=== PATIENT | female | born 1965 | race American Indian/Alaskan Native ===

== ENCOUNTER 2018-02-22 19:31 | Emergency (ER) | payer MEDICAID ==
[2018-02-23] MEDS ORDERED: NORCO 7.5/325 PO ONE (00:05)
[2018-02-23 00:53] VITALS: BP 120/68
--- NOTE | 2018-02-23 01:00 | Emergency Department Report ---
ED General Adult HPI - General Chief complaint: Pain General Stated complaint: CHRONIC PAIN/BREATHING Time Seen by Provider: 02/22/18 22:48 Source: patient Mode of arrival: Wheelchair Limitations: Physical Limitation - History of Present Illness Initial comments: ms Tobin is a 52 year-old woman with hx of lupus, multiple CVAs who presents needing pain medication and a CPAP machine. Was just discahrged from [facility] yesterday. Was there for nearly a year recovering from CVA. has residual R sided weakness. Had been getting lortab 7.5mg q6h. She was not sent home with any. She reports chronic pain from her lupus. Pain in "all of my joints." No chest pain, no shortness of breath, no fever, no pain with urination. Has DANITZA and was not sent home with a CPAP machine. Wants pain meds and a CPAP. is accompanied by her office rn. No other complaints. Severity scale (0 -10): 10 - Related Data Allergies Allergy/AdvReac Type Severity Reaction Status Date / Time No Known Allergies Allergy Unverified 02/22/18 19:40 ED Review of Systems ROS: Stated complaint: CHRONIC PAIN/BREATHING Other details as noted in HPI Comment: All other systems reviewed and negative ED Past Medical Hx - Past Medical History Previous Medical History?: Yes Hx Hypertension: Yes Hx CVA: Yes (Right sided weakness) Hx GERD: Yes Hx Arthritis: Yes Hx Psychiatric Treatment: Yes (depression) Hx Asthma: Yes Hx COPD: Yes Additional medical history: Lupus, Rhuematoid Arthritis, Fibromyalgia, TIS, Anemia, Lympodema, Insomnia, Uses a sleep apnea machine at night - Surgical History Past Surgical History?: Yes Additional Surgical History: Carotid Endarectomy Right side - Social History Smoking Status: Current Some Day Smoker ED Physical Exam - General Limitations: Physical Limitation General appearance: alert, in no apparent distress - Head Head exam: Present: atraumatic, normocephalic - Eye Eye exam: Present: normal appearance, EOMI - ENT ENT exam: Present: normal exam, mucous membranes moist - Neck Neck exam: Present: normal inspection. Absent: tenderness - Respiratory Respiratory exam: Present: normal lung sounds bilaterally. Absent: respiratory distress, wheezes, rales - Cardiovascular Cardiovascular Exam: Present: regular rate, normal rhythm. Absent: systolic murmur, diastolic murmur, rubs, gallop - GI/Abdominal GI/Abdominal exam: Present: soft. Absent: distended, tenderness - Extremities Exam Extremities exam: Present: normal inspection - Back Exam Back exam: Present: normal inspection. Absent: tenderness - Neurological Exam Neurological exam: Present: alert, oriented X3, other (R sided weakness) - Psychiatric Psychiatric exam: Present: normal affect, normal mood - Skin Skin exam: Present: warm, dry, intact, normal color. Absent: rash ED Course Vital Signs 02/22/18 02/22/18 02/23/18 20:00 22:12 00:53 Temperature 97.9 F 98.5 F Pulse Rate 93 H 71 86 Respiratory 16 16 18 Rate Blood Pressure 122/78 Blood Pressure 115/73 120/68 [Right] O2 Sat by Pulse 98 97 96 Oximetry ED Medical Decision Making - Medical Decision Making Ms Tobin is a 52 year-old woman needing medication refill and CPAP. No other complaints. Is with her office rn. SpO2 normal on room air. No acute injury or trauma. Giving one dose of her PO lortab. unable to refill pain medication. Recommend she contact [facility] for her CPAP and RX, otherwise see her PCP or call Saturday to talk with social service worker to help her get a home CPAP. DC to home with return precautions. no cpap to give, I do not feel comfortable refilling chronic pain medication in the ED. no emergent indication. Critical care attestation.: If time is entered above; I have spent that time in minutes in the direct care of this critically ill patient, excluding procedure time. ED Disposition Clinical Impression: Chronic pain Qualifiers: Chronic pain type: other chronic pain Qualified Code(s): G89.29 - Other chronic pain Disposition: DC-01 TO HOME OR SELFCARE Is pt being admited?: No Condition: Stable Instructions: Insomnia (ED), CPAP (GEN) Additional Instructions: Please call [phone] Saturday morning and ask to speak with social work. They can assist you in getting a home CPAP Referrals: PRIMARY CARE,MD [Primary Care Provider] - 3-5 Days
== END 2018-02-23 01:24 | disposition home or self-care (01) ==
LOC: ED 19:31
DX: G89.29 Other chronic pain (principal); M32.9 Systemic lupus erythematosus, unspecified; I10 Essential (primary) hypertension; K21.9 Gastro-esophageal reflux disease without esophagitis; F32.9 Major depressive disorder, single episode, unspecified; M06.9 Rheumatoid arthritis, unspecified; M79.7 Fibromyalgia; G47.00 Insomnia, unspecified; F17.200 Nicotine dependence, unspecified, uncomplicated
CPT/HCPCS: 99282

== ENCOUNTER 2018-09-04 17:55 | Inpatient (IN) | payer MEDICAID ==
[2018-09-04] MEDS ORDERED: NACL 0.9% 1000 ML 1,000 ML IV ONE (18:13)
[2018-09-04] MEDS ORDERED: ZOFRAN ONE (18:17)
[2018-09-04 18:35] LABS: Basophils # (Auto) 0.1 K/mm3 (0.0-0.1); Eosinophils # (Auto) 0.1 K/mm3 (0.0-0.4); Eosinophils % (Auto) 1.1 % (0.0-4.3); Hematocrit 32.1 % (30.3-42.9); Hemoglobin 10.5 gm/dl (10.1-14.3); Lymphocytes # (Auto) 3.1 K/mm3 (1.2-5.4); Lymphocytes % (Auto) 31.5 % (13.4-35.0); Mean Corpuscular HGB Conc 33 % (30-34); Mean Corpuscular Volume 81 fl (79-97); Monocytes # (Auto) 1.5 K/mm3 (0.0-0.8); Monocytes % (Auto) 15.7 % (0.0-7.3); Platelet Count 446 K/mm3 (140-440); Red Blood Count 3.99 M/mm3 (3.65-5.03); Red Cell Distribution Width 15.8 % (13.2-15.2)
[2018-09-04 18:47] LABS: Albumin 3.1 g/dL (3.9-5); Calcium 9.4 mg/dL (8.4-10.2)
--- NOTE | 2018-09-04 20:30 | Emergency Department Report ---
ED Abdominal Pain HPI - General Chief Complaint: Nausea/Vomiting/Diarrhea Stated Complaint: HYPOTENSION Time Seen by Provider: 09/04/18 20:19 Source: patient, family Mode of arrival: Wheelchair Limitations: No Limitations - History of Present Illness Initial Comments: Condition is a 52-year-old female that presents emergency room with complaints of abdominal pain 3 days. Patient states she is also having nausea vomiting diarrhea. Patient states her abdominal pain is 10 out of 10 and is generalized. Patient states her pain is nonradiating. Patient states the pain is better with rest and worse with movement and vomiting. Patient states she does not have anything down for 3 days. MD Complaint: abdominal pain -: Sudden Location: diffuse Radiation: none Migration to: no migration Severity: severe Severity scale (0 -10): 10 Quality: stabbing Consistency: constant Improves With: rest Worsens With: eating, vomiting, movement Associated Symptoms: nausea, vomiting, diarrhea. denies: fever, chills, constipation, dysuria, hematemesis, hematochezia, melena, hematuria, anorexia - Related Data LMP (females 10-50): unknown Allergies Allergy/AdvReac Type Severity Reaction Status Date / Time No Known Allergies Allergy Unverified 02/22/18 19:40 ED Review of Systems ROS: Stated complaint: HYPOTENSION Other details as noted in HPI Constitutional: denies: chills, fever Eyes: denies: eye pain, eye discharge, vision change ENT: denies: ear pain, throat pain Respiratory: denies: cough, shortness of breath, wheezing Cardiovascular: denies: chest pain, palpitations Endocrine: no symptoms reported Gastrointestinal: abdominal pain, nausea, vomiting, diarrhea. denies: constipation, hematemesis, melena Genitourinary: denies: urgency, dysuria, discharge Musculoskeletal: denies: back pain, joint swelling, arthralgia Skin: denies: rash, lesions Neurological: denies: headache, weakness, paresthesias Psychiatric: denies: anxiety, depression Hematological/Lymphatic: denies: easy bleeding, easy bruising ED Past Medical Hx - Past Medical History Previous Medical History?: Yes Hx Hypertension: Yes Hx CVA: Yes (Right sided weakness) Hx GERD: Yes Hx Renal Disease: Yes Hx Arthritis: Yes Hx Psychiatric Treatment: Yes (depression) Hx Asthma: Yes Hx COPD: Yes Additional medical history: Lupus, Rhuematoid Arthritis, Fibromyalgia, TIS, Anemia, Lympodema, Insomnia, Uses a sleep apnea machine at night - Surgical History Past Surgical History?: Yes Additional Surgical History: Carotid Endarectomy Right side - Social History Smoking Status: Never Smoker Substance Use Type: None ED Physical Exam - General Limitations: No Limitations General appearance: alert, in no apparent distress - Head Head exam: Present: atraumatic, normocephalic - Eye Eye exam: Present: normal appearance - ENT ENT exam: Present: mucous membranes dry - Neck Neck exam: Present: normal inspection - Respiratory Respiratory exam: Present: normal lung sounds bilaterally. Absent: respiratory distress - Cardiovascular Cardiovascular Exam: Present: regular rate, normal rhythm. Absent: systolic murmur, diastolic murmur, rubs, gallop - GI/Abdominal GI/Abdominal exam: Present: soft, tenderness (generalized ttp but most tenderness noted in the left lower quadrant), normal bowel sounds - Extremities Exam Extremities exam: Present: normal inspection - Back Exam Back exam: Present: normal inspection - Neurological Exam Neurological exam: Present: alert, oriented X3 - Psychiatric Psychiatric exam: Present: normal affect, normal mood - Skin Skin exam: Present: warm, dry, intact, normal color. Absent: rash ED Course Vital Signs 09/04/18 09/04/18 09/04/18 18:10 21:38 23:15 Temperature 98.2 F Pulse Rate 100 H Respiratory 20 16 18 Rate Blood Pressure 98/62 Blood Pressure [Left] O2 Sat by Pulse 99 99 Oximetry 09/04/18 09/05/18 09/05/18 23:35 01:00 02:45 Temperature 98 F Pulse Rate 98 H 85 99 H Respiratory 18 16 18 Rate Blood Pressure Blood Pressure 96/56 98/59 84/49 [Left] O2 Sat by Pulse 98 96 98 Oximetry 09/05/18 09/05/18 09/05/18 03:16 03:46 05:48 Temperature Pulse Rate 98 H 105 H 103 H Respiratory 22 24 14 Rate Blood Pressure 123/99 89/54 Blood Pressure 92/50 [Left] O2 Sat by Pulse 96 95 Oximetry - Reevaluation(s) Reevaluation #1: Patient still complaining of significant abdominal pain and nausea. 09/04/18 22:10 Discussed all results with patient. Patient agrees with plan of care and admission. Patient to be admitted to the hospitalist service for further outpatient treatment. 09/04/18 22:35 Reevaluation #2: Patient has already been admitted to the hospitalist service. However patient has become hypotensive. I discussed with the hospitalist the need for a central line and Dr. Han agrees with central line placement. Central line will be placed. See procedure note. 09/05/18 03:28 Central line placed and chest x-ray will be done. Central line was placed in the right IJ 09/05/18 04:29 X-ray shows good placement. 09/05/18 05:53 - Consultations Consultation #1: Hospitalist consultation. Hospital is to admit patient and assume care of patient. 09/04/18 22:35 - Central Line Placement Right IJ Consent Obtained: verbal consent, emergent situation Time Out Performed: Yes Patient Placed on Monitor/Pulse Ox: Yes Prep: mask, gown, gloves Central Line Prep: Chlorhexidine scrub, sterile drapes applied Local Anesthesia Used: Lidocaine 1% Ultrasound Used for Placement: Yes Central Line Lumen Inserted: triple Bloods Obtained for Lab: No Central Line Position: good blood return, all ports aspirated, flus, sutured in place with 2-0 Dressing Applied: Tegaderm Post Procedure X-Ray: tip of catheter in good p Patient Tolerated Procedure: well Complications: none ED Medical Decision Making - Lab Data Result diagrams: 09/04/18 18:15 09/04/18 18:15 - Radiology Data Radiology results: report reviewed, image reviewed interpreted by me: Chest x-ray reviewed and central line is in satisfactory position. No pneumothorax noted FINAL REPORT EXAM: CT ABDOMEN PELVIS WO CON HISTORY: abd pain TECHNIQUE: Helical CT scan through the abdomen and pelvis without contrast. Images are reconstructed in the sagittal and coronal planes. PRIORS: None. FINDINGS: Solid organ and bowel evaluation is limited without intravenous contrast. Bowel evaluation is limited without oral contrast. There is mild bibasilar subsegmental atelectasis. The liver, gallbladder, pancreas, spleen and adrenal glands appear normal. The kidneys appear grossly normal. Pelvic organs are partially obscured by spray artifact from a right hip prosthesis. No abnormalities are demonstrated in the pelvis. The stomach appears grossly within normal limits. There are no abnormally dilated loops of bowel or acute inflammatory changes. A normal-appearing appendix is identified. There is colonic diverticulosis without evidence of acute diverticulitis. The abdominal aorta has a normal diameter. There is a right hip prosthesis. The bones are diffusely demineralized. There is advanced degenerative disc disease at L5-S1. There are chronic compression fractures of the L1 through L4 vertebral bodies. IMPRESSION: 1. Diverticulosis without evidence of acute diverticulitis 2. No acute findings in the abdomen/pelvis 3. Chronic compression fractures of L1 through L4 Transcribed By: YAZMIN Dictated By: JIMI PEDERSON MD Electronically Authenticated By: JIMI PEDERSON MD Signed Date/Time: 09/04/18 3316 FINAL REPORT EXAM: XR CHEST 1V AP HISTORY: Post central line TECHNIQUE: AP portable view(s) of the chest obtained. PRIORS: CT abdomen and pelvis 09/04/2018 FINDINGS: Right IJ line terminates near the superior cavoatrial junction. No mediastinal shift. Cardiac silhouette is not enlarged. No pneumothorax, effusion, or focal airspace disease identified. Linear bibasilar atelectasis/scarring. No acute skeletal findings. IMPRESSION: Satisfactory appearance of patient's right IJ line without pneumothorax. Transcribed By: KAVON Dictated By: LON MEDINA MD Electronically Authenticated By: LON MEDINA MD Signed Date/Time: 09/05/18 5057 - Medical Decision Making Patient is 52-year-old female Emergency with intractable nausea vomiting and abdominal pain. Patient found to have a lactic acidosis and a UTI on labs. Patient also found to have acute renal insufficiency. Head CT done. Shows no acute findings. CT Limited due to the fact that IV and oral contrast could not be used due to the patient's clinical situation. Clinically patient has diverticulitis. Patient we treated accordingly. Patient given his the hospital service for further well-nourished treatment. Patient given Dilaudid and Zofran in the ER. Pain has improved and nausea has improved. Patient given Zosyn in the ER for resume diverticulitis and UTI. After admission, patient became hypotensive. Central line was placed in case pressures are needed. Patient is receiving saline boluses and blood pressure is slightly improving. Patient blood pressure during central line placement was 99/60. - Differential Diagnosis diverticuli. Intractable nausea and vomiting. Abdominal pain. UTI. Puneet Critical Care Time: Yes Critical care attestation.: If time is entered above; I have spent that time in minutes in the direct care of this critically ill patient, excluding procedure time. Critical Care Time: 80 minutes ED Disposition Clinical Impression: Diverticulitis, Dehydration, Acute renal insufficiency, Lactic acidosis Abdominal pain Qualifiers: Abdominal location: generalized Qualified Code(s): R10.84 - Generalized abdominal pain Intractable nausea and vomiting Qualifiers: Vomiting type: unspecified Qualified Code(s): R11.2 - Nausea with vomiting, unspecified UTI (urinary tract infection) Qualifiers: Urinary tract infection type: acute cystitis Hematuria presence: with hematuria Qualified Code(s): N30.01 - Acute cystitis with hematuria Sepsis Qualifiers: Sepsis type: sepsis due to unspecified organism Qualified Code(s): A41.9 - Sepsis, unspecified organism Hypotension Qualifiers: Hypotension type: unspecified hypotension type Qualified Code(s): I95.9 - Hypotension, unspecified Disposition: DC-09 OP ADMIT IP TO THIS HOSP Is pt being admited?: Yes Does the pt Need Aspirin: No Condition: Critical Time of Disposition: 22:32
[2018-09-04] MEDS ORDERED: DILAUDID IV ONE (20:54)
[2018-09-04] MEDS ORDERED: ZOFRAN IV ONE (20:55)
[2018-09-04 21:56] LABS: Bilirubin,Urine NEG (Negative); Color,Urine Amber (Yellow)
[2018-09-04 21:57] LABS: Bacteria,Urine 2+ /HPF (Negative); Blood,Urine NEG (Negative); Granular Casts,Urine 5 /LPF; Hyaline Casts,Urine 42 /LPF; Mucus,Urine 2+ /HPF; Urobilinogen,Urine < 2.0 mg/dL (<2.0)
--- NOTE | 2018-09-04 22:05 | Cat Scan Report ---
FINAL REPORT EXAM: CT ABDOMEN PELVIS WO CON HISTORY: abd pain TECHNIQUE: Helical CT scan through the abdomen and pelvis without contrast. Images are reconstructed in the sagittal and coronal planes. PRIORS: None. FINDINGS: Solid organ and bowel evaluation is limited without intravenous contrast. Bowel evaluation is limited without oral contrast. There is mild bibasilar subsegmental atelectasis. The liver, gallbladder, pancreas, spleen and adrenal glands appear normal. The kidneys appear grossly normal. Pelvic organs are partially obscured by spray artifact from a right hip prosthesis. No abnormalities are demonstrated in the pelvis. The stomach appears grossly within normal limits. There are no abnormally dilated loops of bowel or acute inflammatory changes. A normal-appearing appe ndix is identified. There is colonic diverticulosis without evidence of acute diverticulitis. The abdominal aorta has a normal diameter. There is a right hip prosthesis. The bones are diffusely demineralized. There is advanced degenerativ e disc disease at L5-S1. There are chronic compression fractures of the L1 through L4 vertebral pari s. IMPRESSION: 1. Diverticulosis without evidence of acute diverticulitis 2. No acute findings in the abdomen/pelvis 3. Chronic compression fractures of L1 through L4
[2018-09-04] MEDS ORDERED: ZOSYN/NS 2.25 GM/50ML 2.25 GM/50 ML BAG IV ONE (23:00)
[2018-09-04] MEDS ORDERED: BENADRYL IV ONE (23:15)
--- NOTE | 2018-09-04 23:41 | History and Physical Report ---
History of Present Illness Date of examination: 09/04/18 History of present illness: 53-year-old woman with a history of lupus, hypertension, depression, COPD, asthma, CVA, heumatoid arthritis, fibromyalgia comes to the emergency room with complaints of nausea vomiting 3 days, unable to tolerate oral intake. Also com plaining of abdominal pain, epigastric area which she describes as sharp pain, constant, intensity 5/10, no radiation, cannot identify exacerbating or relieving factors. Review of systems Constitutional: no weight loss, chills, fever Ears, eyes, nose, mouth and throat: no nasal congestion, no nasal discharge, no sinus pressure, no vision change, no red eye. Neck: No neck pain or rigidity. Cardiovascular: no palpitations, chest pain Respiratory: no cough, shortness of breath Gastrointestinal: no hematochezia Genitourinary : no frequency , no hematuria Musculoskeletal: no joint swelling or muscle ache Integumentary: no rash, no pruritis Neurological: no parathesias, no focal weakness Endocrine: no cold or heat intolerance, no polyuria or polydipsia Hematologic/Lymphatic: no easy bruising, no easy bleeding, no gland swelling Allergic/Immunologic: no urticaria, no angioedema. PAST MEDICAL HISTORY: lupus, hypertension, depression, COPD, asthma, CVA, rheumatoid arthritis, fibromyalgia PAST SURGICAL HISTORY: CEA SOCIAL HISTORY: Denies alcohol, drugs, tobacco FAMILY HISTORY: Hypertension Medications and Allergies Allergies Allergy/AdvReac Type Severity Reaction Status Date / Time No Known Allergies Allergy Unverified 02/22/18 19:40 Home Medications Medication Instructions Recorded Confirmed Last Taken Type Amoxicillin/Potassium Clav 1 each PO BID #10 tablet 09/09/18 Unknown Rx [Augmentin 875-125 Tablet] Exam - Physical Exam Narrative exam: General Apperance: The patient lying in bed, breathing comfortable HEENT: Normocephalic, atraumatic. Pupils equally round and reactive to light, EOMI, no sclericterus or JVD or thyromegaly or nodule. , no carotid bruit, mucous membranes moist, no exudate or erythema Heart: S1-S2, regular is rhythm Lungs: Clear to auscultation bilaterally, breathing comfortable Abdomen: Positive bowel sounds, soft, nontender, nondistended, no organomegaly Extremities: No edema cyanosis clubbing Skin: no rash, nodule, warm and dry Neuro: cranial nerves 2-12 intact, speech is fluent, motor/sensory intact - Constitutional Vitals: Temp Pulse Resp BP Pulse Ox 98.2 F 100 H 18 98/62 99 09/04/18 18:10 09/04/18 18:10 09/04/18 23:15 09/04/18 18:10 09/04/18 23:15 Results - Labs CBC & Chem 7: 09/07/18 04:25 09/08/18 05:24 Labs: Abnormal lab results 09/04/18 09/04/18 09/04/18 Range/Units 18:15 18:15 20:20 MCH 26 L (28-32) pg RDW 15.8 H (13.2-15.2) % Plt Count 446 H (140-440) K/mm3 [place] % (Auto) 15.7 H (0.0-7.3) % [place] # 1.5 H (0.0-0.8) K/mm3 Sodium 135 L (137-145) mmol/L Chloride 95.6 L (98-107) mmol/L Carbon Dioxide 19 L (22-30) mmol/L BUN 22 H (7-17) mg/dL Creatinine 2.6 H (0.7-1.2) mg/dL Lactic Acid (0.7-2.0) mmol/L Albumin 3.1 L (3.9-5) g/dL Urine WBC (Auto) 13.0 H (0.0-6.0) /HPF U Epithel Cells (Auto) 36.0 H (0-13.0) /HPF 09/04/18 Range/Units 21:49 MCH (28-32) pg RDW (13.2-15.2) % Plt Count (140-440) K/mm3 [place] % (Auto) (0.0-7.3) % [place] # (0.0-0.8) K/mm3 Sodium (137-145) mmol/L Chloride (98-107) mmol/L Carbon Dioxide (22-30) mmol/L BUN (7-17) mg/dL Creatinine (0.7-1.2) mg/dL Lactic Acid 2.60 H* (0.7-2.0) mmol/L Albumin (3.9-5) g/dL Urine WBC (Auto) (0.0-6.0) /HPF U Epithel Cells (Auto) (0-13.0) /HPF - Imaging and Cardiology EKG: image reviewed CT scan - abdomen: report reviewed CT scan - pelvis: report reviewed Assessment and Plan Assessment Acute renal failure Intractable nausea vomiting Relative hypotension UTI Rheumatoid arthritis fibromyalgia Lupus History of CVA Depression COPD Plan Admit to medicine Start IV fluid, IV Rocephin, follow cultures Monitor kidney function Start IV morphine, DVT prophylaxis Addendum Blood pressure still hovering in the 80s to 90s Broaden antibiotic coverage, continue fluid resuscitation Start levophed drip, consult critical care Check cardiac enzymes
[2018-09-04] MEDS ORDERED: ZOFRAN IV PRN (23:54)
[2018-09-04] MEDS ORDERED: SODIUM CHLORIDE FLUSH SYRINGE 10 ML IV PRN (23:54)
[2018-09-05] MEDS: NACL 0.9% 1000 ML 1,000 ML IV SCH ×3 (00:37→15:20)
[2018-09-05] MEDS ORDERED: NACL 0.9% 1000 ML 1,000 ML ONE ×3 (02:52→14:57)
[2018-09-05] MEDS ORDERED: NACL 0.9% 1000 ML 1,000 ML IV ONE ×3 (02:55→04:22)
[2018-09-05] MEDS ORDERED: VANCOMYCIN/NS 1 GM/250 ML 1 GM/250 ML BAG IV ONE (04:08)
[2018-09-05] MEDS ORDERED: LEVOPHED DRIP 4 MG/NS 250 ML 4 MG/250 ML BAG IV SCH (05:00)
--- NOTE | 2018-09-05 05:25 | XRay Report ---
FINAL REPORT EXAM: XR CHEST 1V AP HISTORY: Post central line TECHNIQUE: AP portable view(s) of the chest obtained. PRIORS: CT abdomen and pelvis 09/04/2018 FINDINGS: Right IJ line terminates near the superior cavoatrial junction. No mediastinal shift. Cardiac silhoue tte is not enlarged. No pneumothorax, effusion, or focal airspace disease identified. Linear bibasila r atelectasis/scarring. No acute skeletal findings. IMPRESSION: Satisfactory appearance of patient's right IJ line without pneumothorax.
[2018-09-05] MEDS ORDERED: ROCEPHIN/NS 1 GM/50 ML 1 GM/50 ML BAG IV SCH (06:00)
[2018-09-05] MEDS ORDERED: ZOSYN/NS 3.375GM/50ML 3.375 GM/50 ML BAG IV SCH (06:00)
[2018-09-05] MEDS ORDERED: LEVOPHED DRIP 4 MG/NS 250 ML 4 MG/250 ML BAG IV ONE (06:49)
[2018-09-05 07:21] LABS: Basophils % (Auto) 0.5 % (0.0-1.8); Eosinophils # (Auto) 0.1 K/mm3 (0.0-0.4); Eosinophils % (Auto) 2.2 % (0.0-4.3); Hematocrit 27.8 % (30.3-42.9); Hemoglobin 8.9 gm/dl (10.1-14.3); Lymphocytes # (Auto) 1.9 K/mm3 (1.2-5.4); Lymphocytes % (Auto) 34.4 % (13.4-35.0); Mean Corpuscular HGB Conc 32 % (30-34); Mean Corpuscular Volume 83 fl (79-97); Monocytes # (Auto) 0.8 K/mm3 (0.0-0.8); Monocytes % (Auto) 14.6 % (0.0-7.3); Platelet Count 296 K/mm3 (140-440); Red Blood Count 3.37 M/mm3 (3.65-5.03)
[2018-09-05 07:27] LABS: Calcium 7.3 mg/dL (8.4-10.2)
[2018-09-05 07:29] LABS: Creatine Kinase MB 2.5 ng/mL (0.0-4.0)
[2018-09-05 08:17] LABS: Chol/HDL Ratio 4.5 %
[2018-09-05 11:21] LABS: Creatine Kinase MB 2.1 ng/mL (0.0-4.0)
[2018-09-05] MEDS ORDERED: MORPHINE ONE (11:50)
[2018-09-05] MEDS: SODIUM CHLORIDE FLUSH SYRINGE 10 ML IV SCH ×2 (12:01→22:39)
[2018-09-05] MEDS: MORPHINE IV PRN (12:01)
[2018-09-05] MEDS: LOVENOX SUB-Q SCH (12:02)
[2018-09-05] MEDS ORDERED: LOVENOX SUB-Q ONE (12:07)
--- NOTE | 2018-09-05 13:12 | Consultation ---
History of Present Illness Consult date: 09/05/18 Requesting physician: MARIO AKINS Reason for consult: other (Sepsis Syndrome) History of present illness: PULMONARY/CCM CONSULT NOTE (Full dictation # [id number]) Please see dictated notes for full details Medications and Allergies Allergies Allergy/AdvReac Type Severity Reaction Status Date / Time No Known Allergies Allergy Unverified 02/22/18 19:40 Active Meds: Active Medications Acetaminophen (Tylenol) 650 mg PO Q4H PRN PRN Reason: Pain MILD(1-3)/Fever >100.5/[place] Enoxaparin Sodium (Lovenox) 30 mg SUB-Q QDAY COSMO Last Admin: 09/05/18 12:02 Dose: 30 mg Documented by: Sodium Chloride (Nacl 0.9% 1000 Ml) 1,000 mls @ 150 mls/hr IV DIRECT COSMO Last Admin: 09/05/18 08:17 Dose: 150 mls/hr Documented by: Norepinephrine (Levophed Drip 4 Mg/Ns 250 Ml) 4 mg in 250 mls @ 7.5 mls/hr IV TITR COSMO; Protocol Last Titration: 09/05/18 12:13 Dose: 5 mcg/min, 18.75 mls/hr Documented by: Piperacillin Sod/Tazobactam Sod (Zosyn/Ns 2.25 Gm/50ml) 2.25 gm in 50 mls @ 100 mls/hr IV Q6HR COSMO Morphine Sulfate (Morphine) 1 mg IV Q4H PRN PRN Reason: Pain, Moderate (4-6) Last Admin: 09/05/18 12:01 Dose: 1 mg Documented by: Ondansetron HCl (Zofran) 4 mg IV Q8H PRN PRN Reason: Nausea And Vomiting Sodium Chloride (Sodium Chloride Flush Syringe 10 Ml) 10 ml IV BID COSMO Last Admin: 09/05/18 12:01 Dose: 10 ml Documented by: Sodium Chloride (Sodium Chloride Flush Syringe 10 Ml) 10 ml IV PRN PRN PRN Reason: LINE FLUSH Physical Examination Vital signs: Vital Signs Temp Pulse Resp BP Pulse Ox 98.2 F 100 H 20 98/62 99 09/04/18 18:10 09/04/18 18:10 09/04/18 18:10 09/04/18 18:10 09/04/18 18:10 Results - Laboratory Findings CBC and BMP: 09/05/18 07:00 09/05/18 07:00 Abnormal lab findings: Abnormal Labs 09/04/18 09/04/18 09/04/18 18:15 18:15 20:20 RBC Hgb Hct MCH 26 L RDW 15.8 H Plt Count 446 H [place] % (Auto) 15.7 H [place] # 1.5 H Sodium 135 L Chloride 95.6 L Carbon Dioxide 19 L BUN 22 H Creatinine 2.6 H Lactic Acid Calcium Troponin T Albumin 3.1 L HDL Cholesterol Urine WBC (Auto) 13.0 H U Epithel Cells (Auto) 36.0 H 09/04/18 09/04/18 09/05/18 21:49 23:10 07:00 RBC 3.37 L Hgb 8.9 L Hct 27.8 L MCH 26 L RDW 16.0 H Plt Count [place] % (Auto) 14.6 H [place] # Sodium Chloride Carbon Dioxide BUN Creatinine Lactic Acid 2.60 H* 0.60 L Calcium Troponin T Albumin HDL Cholesterol Urine WBC (Auto) U Epithel Cells (Auto) 09/05/18 09/05/18 09/05/18 07:00 07:00 10:44 RBC Hgb Hct MCH RDW Plt Count [place] % (Auto) [place] # Sodium Chloride 110.4 H Carbon Dioxide 17 L BUN 18 H Creatinine 2.3 H Lactic Acid Calcium 7.3 L D Troponin T 0.088 H 0.090 H Albumin HDL Cholesterol 28 L Urine WBC (Auto) U Epithel Cells (Auto)
--- NOTE | 2018-09-05 17:41 | Progress Note ---
Assessment and Plan - Patient Problems (1) Sepsis Current Visit: Yes Status: Acute Qualifiers: Sepsis type: sepsis due to unspecified organism Qualified Code(s): A41.9 - Sepsis, unspecified organism Plan to address problem: Sec to Uti causing Hypotension (2) MORENA (acute kidney injury) Current Visit: Yes Status: Acute Plan to address problem: Cont IV Fluids (3) Hypotension Current Visit: Yes Status: Acute Qualifiers: Hypotension type: unspecified hypotension type Qualified Code(s): I95.9 - Hypotension, unspecified Plan to address problem: IV Fluids for now on Levophed (4) Intractable nausea and vomiting Current Visit: Yes Status: Acute Qualifiers: Vomiting type: unspecified Qualified Code(s): R11.2 - Nausea with vomiting, unspecified Plan to address problem: IV Zofran and IV protonix and IV Fluids (5) UTI (urinary tract infection) Current Visit: Yes Status: Acute Qualifiers: Urinary tract infection type: acute cystitis Plan to address problem: On Zosyn (6) Lupus Current Visit: Yes Status: Chronic (7) COPD (chronic obstructive pulmonary disease) Current Visit: Yes Status: Chronic Qualifiers: Emphysema type: unspecified Plan to address problem: Duonebs prn (8) DVT prophylaxis Current Visit: Yes Status: Acute Plan to address problem: On Lovenox and GI prophylaxis Subjective Date of service: 09/05/18 Principal diagnosis: Acute renal failure Interval history: Persistent vomiting and UTI Objective - Constitutional Vitals: Vital Signs - 12hr 09/05/18 09/05/18 09/05/18 05:48 06:46 07:00 Temperature Pulse Rate 103 H 98 H 97 H Respiratory 14 25 H 23 Rate Blood Pressure 88/56 101/63 Blood Pressure 92/50 [Left] O2 Sat by Pulse 95 97 Oximetry 09/05/18 09/05/18 09/05/18 07:16 07:30 07:46 Temperature Pulse Rate 94 H 100 H 101 H Respiratory 20 13 19 Rate Blood Pressure 96/63 93/57 84/52 Blood Pressure [Left] O2 Sat by Pulse 92 95 97 Oximetry 09/05/18 09/05/18 09/05/18 08:00 08:16 08:30 Temperature Pulse Rate 96 H 93 H 94 H Respiratory 24 22 18 Rate Blood Pressure 98/63 95/64 98/64 Blood Pressure [Left] O2 Sat by Pulse 96 94 93 Oximetry 09/05/18 09/05/18 09/05/18 08:46 09:00 09:16 Temperature Pulse Rate 103 H 101 H 103 H Respiratory 26 H 18 17 Rate Blood Pressure 101/65 89/62 100/70 Blood Pressure [Left] O2 Sat by Pulse 99 98 98 Oximetry 09/05/18 09/05/18 09/05/18 09:30 09:46 10:00 Temperature Pulse Rate 102 H 94 H 93 H Respiratory 9 L 17 19 Rate Blood Pressure 90/55 99/65 86/53 Blood Pressure [Left] O2 Sat by Pulse 94 94 87 Oximetry 09/05/18 09/05/18 09/05/18 10:16 10:30 10:46 Temperature Pulse Rate 117 H 110 H 99 H Respiratory 17 20 27 H Rate Blood Pressure 88/54 97/63 84/49 Blood Pressure [Left] O2 Sat by Pulse 92 93 96 Oximetry 09/05/18 09/05/18 09/05/18 11:00 11:16 11:30 Temperature Pulse Rate 102 H 101 H 112 H Respiratory 23 28 H 23 Rate Blood Pressure 88/59 88/58 94/58 Blood Pressure [Left] O2 Sat by Pulse 91 89 92 Oximetry 09/05/18 09/05/18 09/05/18 11:46 12:00 12:16 Temperature Pulse Rate 114 H 102 H 111 H Respiratory 19 23 21 Rate Blood Pressure 108/61 82/59 83/55 Blood Pressure [Left] O2 Sat by Pulse 93 95 97 Oximetry 09/05/18 09/05/18 09/05/18 12:30 12:46 13:00 Temperature Pulse Rate 105 H 100 H 113 H Respiratory 26 H 21 30 H Rate Blood Pressure 106/52 102/69 110/75 Blood Pressure [Left] O2 Sat by Pulse 96 93 92 Oximetry 09/05/18 09/05/18 09/05/18 13:16 13:30 13:46 Temperature Pulse Rate 100 H 102 H 98 H Respiratory 26 H 17 30 H Rate Blood Pressure 104/65 91/62 110/75 Blood Pressure [Left] O2 Sat by Pulse 93 89 Oximetry 09/05/18 09/05/18 09/05/18 14:00 14:16 14:30 Temperature Pulse Rate 99 H 102 H 106 H Respiratory 29 H 14 16 Rate Blood Pressure 91/57 97/60 97/62 Blood Pressure [Left] O2 Sat by Pulse 92 94 Oximetry 09/05/18 09/05/18 09/05/18 14:46 15:00 16:30 Temperature 98.1 F Pulse Rate 105 H 111 H 111 H Respiratory 30 H 30 H 30 H Rate Blood Pressure 99/59 97/61 Blood Pressure 97/61 [Left] O2 Sat by Pulse 96 94 94 Oximetry 09/05/18 17:11 Temperature Pulse Rate Respiratory Rate Blood Pressure Blood Pressure [Left] O2 Sat by Pulse 97 Oximetry General appearance: Present: no acute distress, well-nourished - EENT Eyes: PERRL, EOM intact ENT: hearing intact, clear oral mucosa Ears: bilateral: normal - Neck Neck: supple, normal ROM - Respiratory Respiratory effort: normal Respiratory: bilateral: CTA - Breasts Breasts: normal - Cardiovascular Heart rate: 98 Rhythm: regular Heart Sounds: Present: S1 & S2. Absent: gallop, rub Extremities: no ischemia, pulses intact, No edema, normal color, Full ROM - Gastrointestinal General gastrointestinal: Present: soft, non-tender, non-distended, normal bowel sounds - Genitourinary Female genitourinary: normal - Integumentary Integumentary: clear, warm, dry - Musculoskeletal Musculoskeletal: 1, strength equal bilaterally - Neurologic Neurologic: moves all extremities - Psychiatric Psychiatric: memory intact, appropriate mood/affect, intact judgment & insight - Labs CBC & Chem 7: 09/05/18 07:00 09/05/18 07:00 Labs: Abnormal lab results 09/04/18 09/04/18 09/04/18 Range/Units 18:15 18:15 20:20 RBC (3.65-5.03) M/mm3 Hgb (10.1-14.3) gm/dl Hct (30.3-42.9) % MCH 26 L (28-32) pg RDW 15.8 H (13.2-15.2) % Plt Count 446 H (140-440) K/mm3 [place] % (Auto) 15.7 H (0.0-7.3) % [place] # 1.5 H (0.0-0.8) K/mm3 Sodium 135 L (137-145) mmol/L Chloride 95.6 L (98-107) mmol/L Carbon Dioxide 19 L (22-30) mmol/L BUN 22 H (7-17) mg/dL Creatinine 2.6 H (0.7-1.2) mg/dL Lactic Acid (0.7-2.0) mmol/L Calcium (8.4-10.2) mg/dL Troponin T (0.00-0.029) ng/mL Albumin 3.1 L (3.9-5) g/dL HDL Cholesterol (40-59) mg/dL Urine WBC (Auto) 13.0 H (0.0-6.0) /HPF U Epithel Cells (Auto) 36.0 H (0-13.0) /HPF 09/04/18 09/04/18 09/05/18 Range/Units 21:49 23:10 07:00 RBC 3.37 L (3.65-5.03) M/mm3 Hgb 8.9 L (10.1-14.3) gm/dl Hct 27.8 L (30.3-42.9) % MCH 26 L (28-32) pg RDW 16.0 H (13.2-15.2) % Plt Count (140-440) K/mm3 [place] % (Auto) 14.6 H (0.0-7.3) % [place] # (0.0-0.8) K/mm3 Sodium (137-145) mmol/L Chloride (98-107) mmol/L Carbon Dioxide (22-30) mmol/L BUN (7-17) mg/dL Creatinine (0.7-1.2) mg/dL Lactic Acid 2.60 H* 0.60 L (0.7-2.0) mmol/L Calcium (8.4-10.2) mg/dL Troponin T (0.00-0.029) ng/mL Albumin (3.9-5) g/dL HDL Cholesterol (40-59) mg/dL Urine WBC (Auto) (0.0-6.0) /HPF U Epithel Cells (Auto) (0-13.0) /HPF 09/05/18 09/05/18 09/05/18 Range/Units 07:00 07:00 10:44 RBC (3.65-5.03) M/mm3 Hgb (10.1-14.3) gm/dl Hct (30.3-42.9) % MCH (28-32) pg RDW (13.2-15.2) % Plt Count (140-440) K/mm3 [place] % (Auto) (0.0-7.3) % [place] # (0.0-0.8) K/mm3 Sodium (137-145) mmol/L Chloride 110.4 H (98-107) mmol/L Carbon Dioxide 17 L (22-30) mmol/L BUN 18 H (7-17) mg/dL Creatinine 2.3 H (0.7-1.2) mg/dL Lactic Acid (0.7-2.0) mmol/L Calcium 7.3 L D (8.4-10.2) mg/dL Troponin T 0.088 H 0.090 H (0.00-0.029) ng/mL Albumin (3.9-5) g/dL HDL Cholesterol 28 L (40-59) mg/dL Urine WBC (Auto) (0.0-6.0) /HPF U Epithel Cells (Auto) (0-13.0) /HPF
[2018-09-05] MEDS ORDERED: ZOFRAN IV PRN (17:48)
[2018-09-05] MEDS: TYLENOL PO PRN (19:55)
[2018-09-05] MEDS: ZOSYN/NS 2.25 GM/50ML 2.25 GM/50 ML BAG IV SCH (19:57)
[2018-09-05] MEDS: PROTONIX IV SCH (22:39)
--- NOTE | 2018-09-05 22:49 | Consultation ---
PULMONARY CRITICAL CARE CONSULT NOTE CONSULTING PHYSICIAN: Leeann Han MD REASON FOR CONSULTATION: Critical care management, severe sepsis with shock. CHIEF COMPLAINT AND HISTORY OF PRESENT ILLNESS: As follows: The patient is a 52-year-old -[place] female with past medical history as far as I can tell significant for systemic lupus erythematosus and chronic obstructive lung disease as well as rheumatoid arthritis, came into the Emergency Room complaining of nausea, vomiting. It had been going on for about 2-3 days. She was also complaining of epigastric abdominal pain, 5/10, no radiation, no exacerbating or relieving factors, and in particular, she denied any postprandial increasing her symptoms. She was evaluated in the Emergency Room, and as part of the workup, she was found to have an acute kidney injury, but also was septic, hypotensive requiring Levophed for support. We are asked to assist with management. When I stopped by to see her, she was resting in bed. She denied any sick contacts at home. She denied any history of diabetes. She denied any open sores or infectious sources on her body. She denied any dysuria, hematuria or any suggestion of a urinary tract infection. She denied chest pain. She denied cough. She denied expectoration. She denied any new onset leg pain or swelling either unilaterally or bilaterally or any suggestion of deep venous thrombosis. She denies tobacco use or abuse whatsoever. This really is as much of the history of presentation as I have. PAST MEDICAL HISTORY: Lupus erythematosus, hypertension, depression, chronic obstructive lung disease, cerebrovascular accident in the past, rheumatoid arthritis and fibromyalgia. PAST SURGICAL HISTORY: She has had a carotid endarterectomy in the past. She does not remember which side. MEDICATIONS: She was on at the time I stopped by to see her were reviewed. Pertinent medications include the following: Tylenol 650 mg p.o. q. 4 hours p.r.n. mild pain and fevers, Lovenox 30 mg subcutaneous daily, morphine 1 mg IV q. 4 hours p.r.n. moderate pain, Levophed drip was going at 8 mcg per minute when I saw her, normal saline was going at 150 mL per hour, Zofran 4 mg IV q. 8 hours p.r.n. nausea and vomiting, Zosyn 2.25 grams IV q. 6 hours. She had received Rocephin 1 g earlier and received vancomycin 1 gram earlier. ALLERGIES: No known drug allergies. DIET: Obese lady, denies acute weight loss or gain in the preceding few weeks to months. FAMILY AND SOCIAL HISTORY: Lives in the community. Denies alcohol, tobacco, or illicit drug use or abuse. There is a family history of hypertension. REVIEW OF SYSTEMS: Little difficult to obtain secondary to the patient being a poor historian and her medical condition. She denied gross hematochezia or melena. Denies gross hematuria. Denied any hematemesis, denied hemoptysis. Denied new lumps or bumps in her body. Denied any new rash. Denied heat or cold intolerance. Denied polydipsia. Denies polyuria. Complete 13-system review of systems obtained. Pertinent positives and/or negatives as in the body of the history above or otherwise unobtainable. PHYSICAL EXAMINATION: VITAL SIGNS: At presentation, she was afebrile, temperature 98.2 degrees Fahrenheit, pulse of 100, respiratory rate of 20, blood pressure 98/62, O2 sats were 99%, inspired oxygen concentration at the time was not recorded. When I stopped by to see her, her O2 sats were 98% and that was on room air. GENERAL: She is an obese-looking -[place] female, middle-aged, normocephalic, atraumatic, talking mostly in interrupted sentences with mildly increased respiratory effort at rest. HEAD, EYES, EARS, NOSE AND THROAT: She is anicteric. No conjunctival erythema. No gross jugular venous distention, no thyromegaly. Oropharynx is moist. It is a Mallampati #3 oropharynx. Grossly, no palpable lymph nodes in the supraclavicular or submandibular lymph node chains. LUNGS: Auscultation of both lung mccauley unremarkable. Lungs are clear bilaterally. HEART: Heart sounds 1 and 2 are heard. They were regular in rate and rhythm at the time of my evaluation without rubs or murmurs. ABDOMEN: Soft, full, bowel sounds are positive. Mild epigastric tenderness. No palpable hepatosplenomegaly. EXTREMITIES: Without overt digital clubbing, cyanosis, or pedal edema. Dorsalis pedis pulses are palpable bilaterally. NEUROLOGIC: Pupils are equal, round, about 3 mm, reactive to light. Extraocular muscle movements are intact. She moves all 4 extremities spontaneously. No muscle wasting. No fasciculations. No obvious rash. The skin is of normal turgor. No cellulitis or rash that I can see. PSYCHIATRIC: Mood is normal and affect is appropriate. LABORATORY DATA: From my review are as follows: Admission white cell count 9700, hemoglobin 10.5, hematocrit 32.1, platelet count 446. No manual differential. Serum sodium was 135, potassium 4.7, chloride 96, bicarbonate 19, BUN 22, creatinine was 2.6 and glucose was 75. Lactic acid level was within normal limits. Albumin 3.1, otherwise, liver function tests within normal limits. Troponin was up at 0.088. Urinalysis showed moderate leukocyte esterase, 13 white cells per high power field and 2+ bacteria. BUN today is 18 and creatinine is down to 2.3. No cultures have been drawn. Radiographic studies have been reviewed. I have reviewed. The chest x-ray was done. I also reviewed the radiologist's interpretation. There is an area of plate-like atelectasis in the right lower lobe region. Otherwise, no real gross pneumothorax. I cannot rule out subtle right lower lobe infiltrate though, but also no gross bony fractures. She has a right IJ central line with the tip in the distal SVC. She also had a CT scan of the abdomen and pelvis done. I have reviewed the radiologist's interpretation, diverticulosis without evidence of acute diverticulitis; otherwise, bland. ASSESSMENT AND PLAN: 1. Severe sepsis syndrome with shock. 2. Acute coronary syndrome. 3. Possible cardiomyopathy. 4. History of systemic lupus erythematosus. 5. Acute kidney injury. 6. Possible urinary tract infection. 7. History of chronic obstructive lung disease. 8. History of hypertension. 9. History of cerebrovascular accident. 10. Rheumatoid arthritis. 11. Fibromyalgia. PLAN: With her multiple connective tissue disorders, she could very well also have an element of relative adrenal insufficiency. It is unclear if she has been on significant amounts of corticosteroids as part of her home regimen for maintaining her connective tissue disorders. Nonetheless, her numbers also suggest that we may be again dealing with intravascular volume depletion. She does deny any recent diarrhea. She denies vomiting. RECOMMENDATIONS: Will be as follows: Continue to wean vasopressors to keep mean arterial pressures greater than or equal to be about 65 mmHg. Continue volume resuscitation at the current rate. She already received 3 liters in bolus form. I do agree with empiric antibiotic therapy. Two sets of blood cultures will be ordered if those have not already been ordered. CRP level will be ordered to glass etcher helper clinical decision making down the road. Nephrology evaluation is in order. A 2D echocardiogram will be ordered if none has been done to ensure we are not dealing with a primary cardiomyopathy as a cause of the hypotension. She is appropriately on DVT prophylaxis. I have a low suspicion for venous thromboembolic event at this point. I will also put her on GI prophylaxis. Abdominal pain may be related to gastroesophageal reflux disease. Flu and pneumonia vaccination will be addressed per protocol. Thank you very much for the consult. We will follow along and make further recommendations as picture progresses/becomes clearer. She is critically ill on life-sustaining interventions including vasopressors, at risk of from decompensation in the cardiovascular systems. At this time, I spent about 35-40 minutes of critical care time without overlap and excluding any procedural time that may be necessary. JOB# [id number] WALTER/MICHELLE
[2018-09-06] MEDS: NACL 0.9% 1000 ML 1,000 ML IV SCH ×3 (00:14→17:56)
[2018-09-06] MEDS: ZOSYN/NS 2.25 GM/50ML 2.25 GM/50 ML BAG IV SCH ×4 (00:24→21:36)
[2018-09-06] MEDS: SODIUM CHLORIDE FLUSH SYRINGE 10 ML IV SCH ×2 (09:49→21:27)
[2018-09-06] MEDS: LOVENOX SUB-Q SCH (09:49)
[2018-09-06] MEDS: PROTONIX IV SCH ×2 (09:49→21:28)
--- NOTE | 2018-09-06 14:05 | Progress Note ---
Assessment and Plan - Patient Problems (1) Sepsis Current Visit: Yes Status: Acute Qualifiers: Sepsis type: sepsis due to unspecified organism Qualified Code(s): A41.9 - Sepsis, unspecified organism Plan to address problem: Sec to Uti causing Hypotension Improving (2) MORENA (acute kidney injury) Current Visit: Yes Status: Acute Plan to address problem: Cont IV Fluids (3) Hypotension Current Visit: Yes Status: Acute Qualifiers: Hypotension type: unspecified hypotension type Qualified Code(s): I95.9 - Hypotension, unspecified Plan to address problem: Improved (4) Intractable nausea and vomiting Current Visit: Yes Status: Acute Qualifiers: Vomiting type: unspecified Qualified Code(s): R11.2 - Nausea with vomiting, unspecified Plan to address problem: Improved (5) UTI (urinary tract infection) Current Visit: Yes Status: Acute Qualifiers: Urinary tract infection type: acute cystitis Plan to address problem: On Zosyn (6) Lupus Current Visit: Yes Status: Chronic (7) COPD (chronic obstructive pulmonary disease) Current Visit: Yes Status: Chronic Qualifiers: Emphysema type: unspecified Plan to address problem: Duonebs prn (8) DVT prophylaxis Current Visit: Yes Status: Acute Plan to address problem: On Lovenox and GI prophylaxis Subjective Date of service: 09/06/18 Principal diagnosis: Acute renal failure Interval history: doing better Vomiting subsided Objective - Constitutional Vitals: Vital Signs - 12hr 09/06/18 09/06/18 09/06/18 02:10 02:20 02:30 Temperature Pulse Rate 89 98 H 98 H Respiratory 24 19 23 Rate Blood Pressure 88/62 88/62 88/62 O2 Sat by Pulse 100 100 92 Oximetry 09/06/18 09/06/18 09/06/18 02:40 02:50 03:00 Temperature Pulse Rate 78 86 81 Respiratory 32 H 19 22 Rate Blood Pressure 88/62 88/62 76/51 O2 Sat by Pulse 97 96 96 Oximetry 09/06/18 09/06/18 09/06/18 03:10 03:20 03:30 Temperature Pulse Rate 86 102 H 102 H Respiratory 22 19 23 Rate Blood Pressure 76/51 76/51 110/69 O2 Sat by Pulse 97 98 100 Oximetry 09/06/18 09/06/18 09/06/18 03:39 03:40 03:50 Temperature 98.8 F Pulse Rate 90 81 Respiratory 23 20 Rate Blood Pressure 76/51 76/51 O2 Sat by Pulse 100 98 Oximetry 09/06/18 09/06/18 09/06/18 04:00 04:10 04:19 Temperature Pulse Rate 77 84 90 Respiratory 20 23 Rate Blood Pressure 92/60 92/60 O2 Sat by Pulse 98 99 Oximetry 09/06/18 09/06/18 09/06/18 04:20 04:30 04:40 Temperature Pulse Rate 84 86 101 H Respiratory 24 29 H 26 H Rate Blood Pressure 92/60 92/60 92/60 O2 Sat by Pulse 98 96 99 Oximetry 09/06/18 09/06/18 09/06/18 04:50 05:00 05:10 Temperature Pulse Rate 99 H 87 110 H Respiratory 25 H 26 H 16 Rate Blood Pressure 92/60 90/58 90/58 O2 Sat by Pulse 98 98 97 Oximetry 09/06/18 09/06/18 09/06/18 05:20 05:30 05:40 Temperature Pulse Rate 90 92 H 82 Respiratory 15 17 21 Rate Blood Pressure 90/58 90/58 90/58 O2 Sat by Pulse 99 100 99 Oximetry 09/06/18 09/06/18 09/06/18 05:50 06:00 06:05 Temperature Pulse Rate 82 86 Respiratory 22 23 21 Rate Blood Pressure 90/58 83/57 O2 Sat by Pulse 99 97 95 Oximetry 09/06/18 09/06/18 09/06/18 06:10 06:20 06:30 Temperature Pulse Rate 86 81 107 H Respiratory 23 20 17 Rate Blood Pressure 90/58 90/58 90/58 O2 Sat by Pulse 99 99 94 Oximetry 09/06/18 09/06/18 09/06/18 06:40 06:50 07:01 Temperature Pulse Rate 94 H 106 H 87 Respiratory 16 18 18 Rate Blood Pressure 83/57 83/57 64/24 O2 Sat by Pulse 100 99 100 Oximetry 09/06/18 09/06/18 08:00 09:00 Temperature 98.4 F Pulse Rate 88 91 H Respiratory 23 28 H Rate Blood Pressure 89/53 110/71 O2 Sat by Pulse 100 Oximetry General appearance: Present: no acute distress, well-nourished - EENT Eyes: PERRL, EOM intact ENT: hearing intact, clear oral mucosa Ears: bilateral: normal - Neck Neck: supple, normal ROM - Respiratory Respiratory effort: normal Respiratory: bilateral: CTA - Breasts Breasts: normal - Cardiovascular Rhythm: regular Heart Sounds: Present: S1 & S2. Absent: gallop, rub Extremities: pulses intact, No edema, normal color, Full ROM - Gastrointestinal General gastrointestinal: Present: soft, non-tender, non-distended, normal bowel sounds - Genitourinary Female genitourinary: normal - Integumentary Integumentary: clear, warm, dry - Musculoskeletal Musculoskeletal: 1, strength equal bilaterally - Neurologic Neurologic: moves all extremities - Psychiatric Psychiatric: memory intact, appropriate mood/affect, intact judgment & insight - Labs CBC & Chem 7: 09/05/18 07:00 09/05/18 07:00 Labs: Abnormal lab results 09/05/18 Range/Units 17:45 C-Reactive Protein 4.60 H (0.00-1.30) mg/dL
[2018-09-06] MEDS: MORPHINE IV PRN (21:25)
--- NOTE | 2018-09-06 23:39 | Progress Note ---
Assessment and Plan Patient sleeping at this time. No acute respiratory distress. Patient is on room air. O2 saturation 92%. - Patient Problems (1) MORENA (acute kidney injury) Current Visit: Yes Status: Acute Plan to address problem: Management as per nephrology. (2) DVT prophylaxis Current Visit: Yes Status: Acute Plan to address problem: On Lovenox 30 mg S/C qd. (3) Hypotension Current Visit: Yes Status: Acute Qualifiers: Hypotension type: unspecified hypotension type Plan to address problem: Improved. To days 103/60. (4) Lactic acidosis Current Visit: Yes Status: Acute Plan to address problem: Improving. Bicarb 20. Anion gap 15. Obtaining ABGs (5) UTI (urinary tract infection) Current Visit: Yes Status: Acute Qualifiers: Urinary tract infection type: acute cystitis Hematuria presence: with h ematuria Qualified Code(s): N30.01 - Acute cystitis with hematuria Plan to address problem: Patient is on zosyn. Subjective Date of service: 09/06/18 Principal diagnosis: Acute renal failure Interval history: Patient sleeping at this time. No acute respiratory distress. Patient is on room air. O2 saturation 92%. Objective Constitutional: no acute distress, asleep Eyes: non-icteric Neck: supple, no lymphadenopathy Ascultation: Bilateral: clear Cardiovascular: regular rate and rhythm Gastrointestinal: normoactive bowel sounds, soft, non-tender Integumentary: normal Extremities: no cyanosis, no edema Neurologic: other (Patient is in deep sleep.) Psychiatric: other (Patient sleeping.) CBC and BMP: 09/07/18 04:25 09/07/18 04:25 Abnormal lab findings: Abnormal Labs 09/04/18 09/04/18 09/04/18 18:15 18:15 20:20 RBC Hgb Hct MCH 26 L RDW 15.8 H Plt Count 446 H [place] % (Auto) 15.7 H [place] # 1.5 H Sodium 135 L Chloride 95.6 L Carbon Dioxide 19 L BUN 22 H Creatinine 2.6 H Lactic Acid Calcium Troponin T C-Reactive Protein Albumin 3.1 L HDL Cholesterol Urine WBC (Auto) 13.0 H U Epithel Cells (Auto) 36.0 H 09/04/18 09/04/18 09/05/18 21:49 23:10 07:00 RBC 3.37 L Hgb 8.9 L Hct 27.8 L MCH 26 L RDW 16.0 H Plt Count [place] % (Auto) 14.6 H [place] # Sodium Chloride Carbon Dioxide BUN Creatinine Lactic Acid 2.60 H* 0.60 L Calcium Troponin T C-Reactive Protein Albumin HDL Cholesterol Urine WBC (Auto) U Epithel Cells (Auto) 09/05/18 09/05/18 09/05/18 07:00 07:00 10:44 RBC Hgb Hct MCH RDW Plt Count [place] % (Auto) [place] # Sodium Chloride 110.4 H Carbon Dioxide 17 L BUN 18 H Creatinine 2.3 H Lactic Acid Calcium 7.3 L D Troponin T 0.088 H 0.090 H C-Reactive Protein Albumin HDL Cholesterol 28 L Urine WBC (Auto) U Epithel Cells (Auto) 09/05/18 17:45 RBC Hgb Hct MCH RDW Plt Count [place] % (Auto) [place] # Sodium Chloride Carbon Dioxide BUN Creatinine Lactic Acid Calcium Troponin T C-Reactive Protein 4.60 H Albumin HDL Cholesterol Urine WBC (Auto) U Epithel Cells (Auto) Chest x-ray: report reviewed (Linear bibasilar atelectasis and scarring.), image reviewed
[2018-09-07] MEDS: ZOSYN/NS 2.25 GM/50ML 2.25 GM/50 ML BAG IV SCH ×4 (00:15→20:30)
[2018-09-07] MEDS: NACL 0.9% 1000 ML 1,000 ML IV SCH ×3 (00:16→17:51)
[2018-09-07] MEDS: MORPHINE IV PRN ×4 (01:48→21:20)
[2018-09-07 05:17] LABS: Basophils % (Auto) 0.6 % (0.0-1.8); Eosinophils # (Auto) 0.5 K/mm3 (0.0-0.4); Eosinophils % (Auto) 11.9 % (0.0-4.3); Hematocrit 29.1 % (30.3-42.9); Hemoglobin 9.5 gm/dl (10.1-14.3); Lymphocytes # (Auto) 1.6 K/mm3 (1.2-5.4); Lymphocytes % (Auto) 38.2 % (13.4-35.0); Mean Corpuscular HGB Conc 33 % (30-34); Mean Corpuscular Volume 82 fl (79-97); Monocytes # (Auto) 0.5 K/mm3 (0.0-0.8); Monocytes % (Auto) 12.1 % (0.0-7.3); Platelet Count 310 K/mm3 (140-440); Red Blood Count 3.56 M/mm3 (3.65-5.03)
[2018-09-07 05:28] LABS: Alanine Aminotransferase 7 units/L (7-56); Albumin 2.6 g/dL (3.9-5); BUN/Creatinine Ratio 4; Blood Urea Nitrogen 4 mg/dL (7-17); Calcium 7.8 mg/dL (8.4-10.2); Hemolysis Index 4
[2018-09-07] MEDS: PROTONIX IV SCH ×2 (11:08→21:19)
[2018-09-07] MEDS: LOVENOX SUB-Q SCH (11:08)
[2018-09-07] MEDS: SODIUM CHLORIDE FLUSH SYRINGE 10 ML IV SCH ×2 (11:09→21:20)
[2018-09-07] MEDS ORDERED: K-DUR PO ONE ×2 (14:25→18:00)
--- NOTE | 2018-09-07 14:25 | Progress Note ---
Assessment and Plan - Patient Problems (1) Sepsis Current Visit: Yes Status: Acute Qualifiers: Sepsis type: sepsis due to unspecified organism Qualified Code(s): A41.9 - Sepsis, unspecified organism Plan to address problem: Sec to Uti causing Hypotension Improving (2) MORENA (acute kidney injury) Current Visit: Yes Status: Acute Plan to address problem: Cont IV Fluids Resolved Creatinine 1.0 (3) Hypotension Current Visit: Yes Status: Acute Qualifiers: Hypotension type: unspecified hypotension type Qualified Code(s): I95.9 - Hypotension, unspecified Plan to address problem: Improved (4) Intractable nausea and vomiting Current Visit: Yes Status: Deleted Qualifiers: Vomiting type: unspecified Qualified Code(s): R11.2 - Nausea with vomiting, unspecified Plan to address problem: Improved (5) UTI (urinary tract infection) Current Visit: Yes Status: Acute Qualifiers: Urinary tract infection type: acute cystitis Plan to address problem: On Zosyn (6) Lupus Current Visit: Yes Status: Chronic (7) COPD (chronic obstructive pulmonary disease) Current Visit: Yes Status: Chronic Qualifiers: Emphysema type: unspecified Plan to address problem: Duonebs prn (8) DVT prophylaxis Current Visit: Yes Status: Acute Plan to address problem: On Lovenox and GI prophylaxis Subjective Date of service: 09/07/18 Principal diagnosis: Acute renal failure Interval history: doing better Vomiting subsided Objective - Constitutional Vitals: Vital Signs - 12hr 09/07/18 06:07 Temperature 98.7 F Pulse Rate 89 Respiratory 20 Rate Blood Pressure 103/60 O2 Sat by Pulse 90 Oximetry General appearance: Present: no acute distress, well-nourished - EENT Eyes: PERRL, EOM intact ENT: hearing intact, clear oral mucosa Ears: bilateral: normal - Neck Neck: supple, normal ROM - Respiratory Respiratory effort: normal Respiratory: bilateral: CTA - Breasts Breasts: normal - Cardiovascular Rhythm: regular Heart Sounds: Present: S1 & S2. Absent: gallop, rub Extremities: pulses intact, No edema, normal color, Full ROM - Gastrointestinal General gastrointestinal: Present: soft, non-tender, non-distended, normal bowel sounds - Genitourinary Female genitourinary: normal - Integumentary Integumentary: clear, warm, dry - Musculoskeletal Musculoskeletal: 1, strength equal bilaterally - Neurologic Neurologic: moves all extremities - Psychiatric Psychiatric: memory intact, appropriate mood/affect, intact judgment & insight - Labs CBC & Chem 7: 09/07/18 04:25 09/07/18 04:25 Labs: Abnormal lab results 09/07/18 09/07/18 09/07/18 Range/Units 04:25 04:25 12:40 WBC 4.2 L (4.5-11.0) K/mm3 RBC 3.56 L (3.65-5.03) M/mm3 Hgb 9.5 L (10.1-14.3) gm/dl Hct 29.1 L (30.3-42.9) % MCH 27 L (28-32) pg RDW 16.0 H (13.2-15.2) % Lymph % (Auto) 38.2 H (13.4-35.0) % [place] % (Auto) 12.1 H (0.0-7.3) % Eos % (Auto) 11.9 H (0.0-4.3) % Eos # 0.5 H (0.0-0.4) K/mm3 Seg Neutrophils % 37.2 L (40.0-70.0) % Seg Neutrophils # 1.6 L (1.8-7.7) K/mm3 POC ABG pCO2 29.3 L (35-45) POC ABG pO2 75 L (80-105) Potassium 3.4 L (3.6-5.0) mmol/L Chloride 107.9 H (98-107) mmol/L Carbon Dioxide 20 L (22-30) mmol/L BUN 4 L (7-17) mg/dL Calcium 7.8 L (8.4-10.2) mg/dL Total Protein 5.6 L (6.3-8.2) g/dL Albumin 2.6 L (3.9-5) g/dL
--- NOTE | 2018-09-07 15:30 | Progress Note ---
Assessment and Plan Patient sleeping at this time. No acute respiratory distress. Patient is on room air. O2 saturation 97%. BGs PH 7.38, PCO2 29 , PO2 75 , HCO3 17 , O2 saturation 95% on room air. - Patient Problems (1) MORENA (acute kidney injury) Current Visit: Yes Status: Acute Plan to address problem: Management as per nephrology. (2) DVT prophylaxis Current Visit: Yes Status: Acute Plan to address problem: On Lovenox 30 mg S/C qd. (3) Hypotension Current Visit: Yes Status: Acute Qualifiers: Hypotension type: unspecified hypotension type Qualified Code(s): I95.9 - Hypotension, unspecified Plan to address problem: Improved. To days 115/69. (4) Lactic acidosis Current Visit: Yes Status: Acute Plan to address problem: Improving. Bicarb 20. Anion gap 15. ABGs PH 7.38, PCO2 29 , PO2 75 , HCO3 17 , O2 saturation 95% on room air. (5) UTI (urinary tract infection) Current Visit: Yes Status: Acute Qualifiers: Urinary tract infection type: acute cystitis Hematuria presence: with hematuria Qualified Code(s): N30.01 - Acute cystitis with hematuria Plan to address problem: Patient is on zosyn. Subjective Date of service: 09/07/18 Principal diagnosis: Acute renal failure Interval history: Patient alert, awake. No acute respiratory distress. Patient is on room air. O2 saturation 97%. BGs PH 7.38, PCO2 29 , PO2 75 , HCO3 17 , O2 saturation 95% on room air. Objective Vital Signs - 12hr 09/07/18 06:07 Temperature 98.7 F Pulse Rate 89 Respiratory 20 Rate Blood Pressure 103/60 O2 Sat by Pulse 90 Oximetry Constitutional: no acute distress, alert Eyes: non-icteric Neck: supple, no lymphadenopathy Ascultation: Bilateral: clear Cardiovascular: regular rate and rhythm Gastrointestinal: normoactive bowel sounds, soft, non-tender Integumentary: normal Extremities: no cyanosis, no edema Neurologic: non-focal exam, pupils equal and round, CN II-XII normal, other (Patient is in deep sleep.) Psychiatric: other (Patient sleeping.) CBC and BMP: 09/07/18 04:25 09/07/18 04:25 ABG, PT/INR, D-dimer: ABG POC ABG pH 7.380 (7.35-7.45) 09/07/18 12:40 POC ABG pCO2 29.3 (35-45) L 09/07/18 12:40 POC ABG pO2 75 (80-105) L 09/07/18 12:40 POC ABG HCO3 17.3 09/07/18 12:40 POC ABG Total CO2 18 09/07/18 12:40 POC ABG O2 Sat 95 09/07/18 12:40 Abnormal lab findings: Abnormal Labs 09/04/18 09/04/18 09/04/18 18:15 18:15 20:20 WBC RBC Hgb Hct MCH 26 L RDW 15.8 H Plt Count 446 H Lymph % (Auto) [place] % (Auto) 15.7 H Eos % (Auto) [place] # 1.5 H Eos # Seg Neutrophils % Seg Neutrophils # POC ABG pCO2 POC ABG pO2 Sodium 135 L Potassium Chloride 95.6 L Carbon Dioxide 19 L BUN 22 H Creatinine 2.6 H Lactic Acid Calcium Troponin T C-Reactive Protein Total Protein Albumin 3.1 L HDL Cholesterol Urine WBC (Auto) 13.0 H U Epithel Cells (Auto) 36.0 H 09/04/18 09/04/18 09/05/18 21:49 23:10 07:00 WBC RBC 3.37 L Hgb 8.9 L Hct 27.8 L MCH 26 L RDW 16.0 H Plt Count Lymph % (Auto) [place] % (Auto) 14.6 H Eos % (Auto) [place] # Eos # Seg Neutrophils % Seg Neutrophils # POC ABG pCO2 POC ABG pO2 Sodium Potassium Chloride Carbon Dioxide BUN Creatinine Lactic Acid 2.60 H* 0.60 L Calcium Troponin T C-Reactive Protein Total Protein Albumin HDL Cholesterol Urine WBC (Auto) U Epithel Cells (Auto) 09/05/18 09/05/18 09/05/18 07:00 07:00 10:44 WBC RBC Hgb Hct MCH RDW Plt Count Lymph % (Auto) [place] % (Auto) Eos % (Auto) [place] # Eos # Seg Neutrophils % Seg Neutrophils # POC ABG pCO2 POC ABG pO2 Sodium Potassium Chloride 110.4 H Carbon Dioxide 17 L BUN 18 H Creatinine 2.3 H Lactic Acid Calcium 7.3 L D Troponin T 0.088 H 0.090 H C-Reactive Protein Total Protein Albumin HDL Cholesterol 28 L Urine WBC (Auto) U Epithel Cells (Auto) 09/05/18 09/07/18 09/07/18 17:45 04:25 04:25 WBC 4.2 L RBC 3.56 L Hgb 9.5 L Hct 29.1 L MCH 27 L RDW 16.0 H Plt Count Lymph % (Auto) 38.2 H [place] % (Auto) 12.1 H Eos % (Auto) 11.9 H [place] # Eos # 0.5 H Seg Neutrophils % 37.2 L Seg Neutrophils # 1.6 L POC ABG pCO2 POC ABG pO2 Sodium Potassium 3.4 L Chloride 107.9 H Carbon Dioxide 20 L BUN 4 L Creatinine Lactic Acid Calcium 7.8 L Troponin T C-Reactive Protein 4.60 H Total Protein 5.6 L Albumin 2.6 L HDL Cholesterol Urine WBC (Auto) U Epithel Cells (Auto) 09/07/18 12:40 WBC RBC Hgb Hct MCH RDW Plt Count Lymph % (Auto) [place] % (Auto) Eos % (Auto) [place] # Eos # Seg Neutrophils % Seg Neutrophils # POC ABG pCO2 29.3 L POC ABG pO2 75 L Sodium Potassium Chloride Carbon Dioxide BUN Creatinine Lactic Acid Calcium Troponin T C-Reactive Protein Total Protein Albumin HDL Cholesterol Urine WBC (Auto) U Epithel Cells (Auto)
[2018-09-08] MEDS: ZOSYN/NS 2.25 GM/50ML 2.25 GM/50 ML BAG IV SCH ×5 (00:03→23:51)
[2018-09-08] MEDS: MORPHINE IV PRN ×3 (02:52→17:31)
[2018-09-08] MEDS: NACL 0.9% 1000 ML 1,000 ML IV SCH (02:52)
[2018-09-08 06:25] LABS: BUN/Creatinine Ratio 4; Blood Urea Nitrogen 3 mg/dL (7-17); Calcium 7.6 mg/dL (8.4-10.2); Hemolysis Index 9
[2018-09-08] MEDS: PROTONIX IV SCH (09:39)
[2018-09-08] MEDS: LOVENOX SUB-Q SCH (09:39)
[2018-09-08] MEDS: SODIUM CHLORIDE FLUSH SYRINGE 10 ML IV SCH ×2 (09:39→22:14)
--- NOTE | 2018-09-08 09:49 | Discharge Summary ---
Providers - Providers Date of Admission: 09/04/18 23:41 Date of discharge: 09/08/18 Attending physician: WILMAR LAWLER 09/05/18 04:12 Consult to Physician [CONS] Routine Comment: Answering Service notified @ [id number] Consulting Provider: SANJANA BETTENCOURT Physician Instructions: Reason For Exam: cc 09/08/18 09:47 Physical Therapy Evaluation and Treat [CONS] Urgent Reason For Exam: debility Comment: 09/08/18 09:48 Consult to Case Management [CONS] Routine Services Needed at Discharge: Home Health Services Primary care physician: EZ BRITTON MD Hospitalization Condition: Critical Disposition: DC-30 STILL A PATIENT - Discharge Diagnoses (1) Sepsis Status: Acute Qualifiers: Sepsis type: sepsis due to unspecified organism Qualified Code(s): A41.9 - Sepsis, unspecified organism (2) MORENA (acute kidney injury) Status: Acute (3) Hypotension Status: Acute Qualifiers: Hypotension type: unspecified hypotension type Qualified Code(s): I95.9 - Hypotension, unspecified (4) Intractable nausea and vomiting Status: Deleted Qualifiers: Vomiting type: unspecified Qualified Code(s): R11.2 - Nausea with vomiting, unspecified (5) UTI (urinary tract infection) Status: Resolved Qualifiers: Urinary tract infection type: acute cystitis (6) Lupus Status: Chronic (7) COPD (chronic obstructive pulmonary disease) Status: Chronic Qualifiers: Emphysema type: unspecified (8) DVT prophylaxis Status: Acute Exam - Constitutional Vitals: Temp Pulse Resp BP Pulse Ox 98.6 F 98 H 18 107/77 96 09/08/18 05:55 09/08/18 00:08 09/08/18 05:55 09/08/18 05:55 09/08/18 00:08 Plan Follow up with: PRIMARY CAREMD [Referring] - 3-5 Days
--- NOTE | 2018-09-08 21:26 | Progress Note ---
Assessment and Plan Patient sleeping at this time. No acute respiratory distress. Patient is on room air. O2 saturation 97%. BGs PH 7.38, PCO2 29 , PO2 75 , HCO3 17 , O2 saturation 95% on room air. - Patient Problems (1) MORENA (acute kidney injury) Current Visit: Yes Status: Acute Plan to address problem: Management as per nephrology. (2) DVT prophylaxis Current Visit: Yes Status: Acute Plan to address problem: On Lovenox 40 mg S/C qd. (3) Hypotension Current Visit: Yes Status: Acute Qualifiers: Hypotension type: unspecified hypotension type Qualified Code(s): I95.9 - Hypotension, unspecified Plan to address problem: Improved. To days 114/79. (4) Lactic acidosis Current Visit: Yes Status: Acute Plan to address problem: Bicarb 18. Anion gap 15. ABGs PH 7.38, PCO2 29 , PO2 75 , HCO3 17 , O2 saturation 95% on room air. (5) UTI (urinary tract infection) Current Visit: Yes Status: Acute Qualifiers: Urinary tract infection type: acute cystitis Hematuria presence: with hematuria Qualified Code(s): N30.01 - Acute cystitis with hematuria Plan to address problem: Patient is on zosyn. Subjective Date of service: 09/08/18 Principal diagnosis: Acute renal failure Interval history: Patient alert, awake. No acute respiratory distress. Patient is on room air. O2 saturation 97%. BGs PH 7.38, PCO2 29 , PO2 75 , HCO3 17 , O2 saturation 95% on room air. Objective Vital Signs - 12hr 09/08/18 09/08/18 12:35 16:56 Temperature 98.3 F 98.3 F Pulse Rate 101 H 102 H Respiratory 20 16 Rate Blood Pressure 104/72 114/79 O2 Sat by Pulse 97 97 Oximetry Constitutional: no acute distress, alert Eyes: non-icteric Neck: supple, no lymphadenopathy Ascultation: Bilateral: clear Cardiovascular: regular rate and rhythm Gastrointestinal: normoactive bowel sounds, soft, non-tender Integumentary: normal Extremities: no cyanosis, no edema Neurologic: non-focal exam, pupils equal and round, CN II-XII normal, other (Patient is in deep sleep.) Psychiatric: other (Patient sleeping.) CBC and BMP: 09/07/18 04:25 09/08/18 05:24 ABG, PT/INR, D-dimer: ABG POC ABG pH 7.380 (7.35-7.45) 09/07/18 12:40 POC ABG pCO2 29.3 (35-45) L 09/07/18 12:40 POC ABG pO2 75 (80-105) L 09/07/18 12:40 POC ABG HCO3 17.3 09/07/18 12:40 POC ABG Total CO2 18 09/07/18 12:40 POC ABG O2 Sat 95 09/07/18 12:40 Abnormal lab findings: Abnormal Labs 09/04/18 09/04/18 09/04/18 18:15 18:15 20:20 WBC RBC Hgb Hct MCH 26 L RDW 15.8 H Plt Count 446 H Lymph % (Auto) [place] % (Auto) 15.7 H Eos % (Auto) [place] # 1.5 H Eos # Seg Neutrophils % Seg Neutrophils # POC ABG pCO2 POC ABG pO2 Sodium 135 L Potassium Chloride 95.6 L Carbon Dioxide 19 L BUN 22 H Creatinine 2.6 H Lactic Acid Calcium Troponin T C-Reactive Protein Total Protein Albumin 3.1 L HDL Cholesterol Urine WBC (Auto) 13.0 H U Epithel Cells (Auto) 36.0 H 09/04/18 09/04/18 09/05/18 21:49 23:10 07:00 WBC RBC 3.37 L Hgb 8.9 L Hct 27.8 L MCH 26 L RDW 16.0 H Plt Count Lymph % (Auto) [place] % (Auto) 14.6 H Eos % (Auto) [place] # Eos # Seg Neutrophils % Seg Neutrophils # POC ABG pCO2 POC ABG pO2 Sodium Potassium Chloride Carbon Dioxide BUN Creatinine Lactic Acid 2.60 H* 0.60 L Calcium Troponin T C-Reactive Protein Total Protein Albumin HDL Cholesterol Urine WBC (Auto) U Epithel Cells (Auto) 09/05/18 09/05/18 09/05/18 07:00 07:00 10:44 WBC RBC Hgb Hct MCH RDW Plt Count Lymph % (Auto) [place] % (Auto) Eos % (Auto) [place] # Eos # Seg Neutrophils % Seg Neutrophils # POC ABG pCO2 POC ABG pO2 Sodium Potassium Chloride 110.4 H Carbon Dioxide 17 L BUN 18 H Creatinine 2.3 H Lactic Acid Calcium 7.3 L D Troponin T 0.088 H 0.090 H C-Reactive Protein Total Protein Albumin HDL Cholesterol 28 L Urine WBC (Auto) U Epithel Cells (Auto) 09/05/18 09/07/18 09/07/18 17:45 04:25 04:25 WBC 4.2 L RBC 3.56 L Hgb 9.5 L Hct 29.1 L MCH 27 L RDW 16.0 H Plt Count Lymph % (Auto) 38.2 H [place] % (Auto) 12.1 H Eos % (Auto) 11.9 H [place] # Eos # 0.5 H Seg Neutrophils % 37.2 L Seg Neutrophils # 1.6 L POC ABG pCO2 POC ABG pO2 Sodium Potassium 3.4 L Chloride 107.9 H Carbon Dioxide 20 L BUN 4 L Creatinine Lactic Acid Calcium 7.8 L Troponin T C-Reactive Protein 4.60 H Total Protein 5.6 L Albumin 2.6 L HDL Cholesterol Urine WBC (Auto) U Epithel Cells (Auto) 09/07/18 09/08/18 12:40 05:24 WBC RBC Hgb Hct MCH RDW Plt Count Lymph % (Auto) [place] % (Auto) Eos % (Auto) [place] # Eos # Seg Neutrophils % Seg Neutrophils # POC ABG pCO2 29.3 L POC ABG pO2 75 L Sodium Potassium Chloride 110.3 H Carbon Dioxide 18 L BUN 3 L Creatinine Lactic Acid Calcium 7.6 L Troponin T C-Reactive Protein Total Protein Albumin HDL Cholesterol Urine WBC (Auto) U Epithel Cells (Auto)
[2018-09-08] MEDS: PROTONIX PO SCH (22:14)
[2018-09-09] MEDS: MORPHINE IV PRN (01:07)
[2018-09-09] MEDS: ZOSYN/NS 2.25 GM/50ML 2.25 GM/50 ML BAG IV SCH ×3 (05:46→17:10)
--- NOTE | 2018-09-09 08:04 | Progress Note ---
Assessment and Plan - Patient Problems (1) Sepsis Current Visit: Yes Status: Acute Qualifiers: Sepsis type: sepsis due to unspecified organism Qualified Code(s): A41.9 - Sepsis, unspecified organism Plan to address problem: Sec to Uti causing Hypotension Improving Resolved (2) MORENA (acute kidney injury) Current Visit: Yes Status: Acute Plan to address problem: ATN Resolved Creatinine 1.0 (3) Hypotension Current Visit: Yes Status: Acute Qualifiers: Hypotension type: unspecified hypotension type Qualified Code(s): I95.9 - Hypotension, unspecified Plan to address problem: Improved (4) Intractable nausea and vomiting Current Visit: Yes Status: Deleted Qualifiers: Vomiting type: unspecified Qualified Code(s): R11.2 - Nausea with vomiting, unspecified Plan to address problem: Improved (5) UTI (urinary tract infection) Current Visit: Yes Status: Resolved Qualifiers: Urinary tract infection type: acute cystitis Plan to address problem: On Zosyn (6) Lupus Current Visit: Yes Status: Chronic (7) COPD (chronic obstructive pulmonary disease) Current Visit: Yes Status: Chronic Qualifiers: Emphysema type: unspecified Plan to address problem: Duonebs prn (8) DVT prophylaxis Current Visit: Yes Status: Acute Plan to address problem: On Lovenox and GI prophylaxis (9) Discharge planning issues Current Visit: Yes Status: Acute Plan to address problem: Tried discharging today Patient says she has difficulty walking If PT clears patient may be discharged tomorrow Discussed with sales and business development manager Subjective Date of service: 09/08/18 Principal diagnosis: Acute renal failure Interval history: doing better Vomiting subsided Says she is weak to walk because she was bedridden for 4 days Objective - Constitutional Vitals: Vital Signs - 12hr 09/08/18 09/08/18 09/09/18 21:54 22:00 01:07 Temperature 98.4 F Pulse Rate 97 H Respiratory 24 19 18 Rate Blood Pressure 115/80 O2 Sat by Pulse 96 Oximetry 09/09/18 09/09/18 01:37 05:56 Temperature 98.4 F Pulse Rate 101 H Respiratory 18 24 Rate Blood Pressure 116/79 O2 Sat by Pulse 95 Oximetry General appearance: Present: no acute distress, well-nourished - EENT Eyes: PERRL, EOM intact ENT: hearing intact, clear oral mucosa Ears: bilateral: normal - Neck Neck: supple, normal ROM - Respiratory Respiratory effort: normal Respiratory: bilateral: CTA - Breasts Breasts: normal - Cardiovascular Rhythm: regular Heart Sounds: Present: S1 & S2. Absent: gallop, rub Extremities: pulses intact, No edema, normal color, Full ROM - Gastrointestinal General gastrointestinal: Present: soft, non-tender, non-distended, normal bowel sounds - Genitourinary Female genitourinary: normal - Integumentary Integumentary: clear, warm, dry - Musculoskeletal Musculoskeletal: 1, strength equal bilaterally - Neurologic Neurologic: moves all extremities - Psychiatric Psychiatric: memory intact, appropriate mood/affect, intact judgment & insight - Labs CBC & Chem 7: 09/07/18 04:25 09/08/18 05:24
[2018-09-09] MEDS: PROTONIX PO SCH (09:06)
[2018-09-09] MEDS: SODIUM CHLORIDE FLUSH SYRINGE 10 ML IV SCH (09:07)
[2018-09-09] MEDS ORDERED: LOVENOX SUB-Q SCH (10:00)
[2018-09-09] MEDS ORDERED: TRIPLE ANTIBIOTIC TP ONE (12:00)
[2018-09-09 12:58] VITALS: BP 127/83
--- NOTE | 2018-09-09 13:15 | Discharge Summary ---
Providers - Providers Date of Admission: 09/04/18 23:41 Date of discharge: 09/09/18 Attending physician: MANI ALVARADO 09/05/18 04:12 Consult to Physician [CONS] Routine Comment: Answering Service notified @ [id number] Consulting Provider: SANJANA BETTENCOURT Physician Instructions: Reason For Exam: cc 09/08/18 09:47 Physical Therapy Evaluation and Treat [CONS] Urgent Comment: Reason For Exam: debility 09/08/18 09:48 Consult to Case Management [CONS] Routine Services Needed at Discharge: Home Health Services Notified:: [email or web address] Primary care physician: YANCY FRANCOIS Hospitalization Condition: Stable Hospital course: Patient is 52 yo woman with a history of Lupus, hypertension, depression, COPD, asthma, CVA, rheumatoid arthritis and fibromyalgia who presented to [facility] with N/V (1) Sepsis Current Visit: Yes Status: Acute Qualifiers: Sepsis type: sepsis due to unspecified organism Qualified Code(s): A41.9 - Sepsis, unspecified organism Plan to address problem: Sec to Uti causing Hypotension Improving Resolved (2) MORENA (acute kidney injury), atn poa Current Visit: Yes Status: Acute Plan to address problem: ATN Resolved Creatinine 1.0 (3) Hypotension Current Visit: Yes Status: Acute Qualifiers: Hypotension type: unspecified hypotension type Qualified Code(s): I95.9 - Hypotension, unspecified Plan to address problem: Improved (4) Intractable nausea and vomiting Current Visit: Yes Status: Deleted Qualifiers: Vomiting type: unspecified Qualified Code(s): R11.2 - Nausea with vomiting, unspecified Plan to address problem: Improved (5) UTI (urinary tract infection) Current Visit: Yes Status: Resolved Qualifiers: Urinary tract infection type: acute cystitis Plan to address problem: On Zosyn (6) Lupus Current Visit: Yes Status: Chronic (7) COPD (chronic obstructive pulmonary disease) Current Visit: Yes Status: Chronic Qualifiers: Emphysema type: unspecified Plan to address problem: Duonebs prn (8) DVT prophylaxis Current Visit: Yes Status: Acute Plan to address problem: On Lovenox and GI prophylaxis (9) Discharge planning issues Current Visit: Yes Status: Acute Plan to address problem: Tried discharging today Patient says she has difficulty walking If PT clears patient may be discharged tomorrow Discussed with manager insurance Disposition: DC/[place]-06 HOME UNDER HOME [facility] Time spent for discharge: 36 min Core Measure Documentation - Palliative Care Palliative Care/ Comfort Measures: Not Applicable - Core Measures Any of the following diagnoses?: none - VTE Discharge Requirements Deep Vein Thrombosis/Pulmonary Embolism Present on Admission: No Has pt received <5 days of overlap therapy or INR<2.0: No Anticoagulant overlap therapy prescribed at discharge: No Contraindication No Overlap Therapy order at DC: Not Indicated Exam - Physical Exam Narrative exam: Gen: chronically disable, nad, awake, talking HEENT: NCAT, EOMI, PERRL, OP Clear Neck: supple, no adenopathy, no thyromegaly, no JVD CVS/Heart: RRR, normal S1S2, pulses present bilaterally Chest/Lungs: CTA B, Symmetrical chest expansion, good air entry bilaterally GI/Abdomen: soft, NTND, good bowel sounds, no guarding or rebound /Bladder: no suprapubic tenderness, no CVA or paraspinal tenderness Extermity/Skin: no c/c/e, no obvious rash MSK: FROM x 4 Neuro: CN 2-12 grossly intact, no new focal deficits Psych: calm - Constitutional Vitals: Temp Pulse Resp BP Pulse Ox 98.9 F 100 H 20 127/83 97 09/09/18 12:26 09/09/18 12:26 09/09/18 12:26 09/09/18 12:26 09/09/18 12:26 Plan Activity: up only with assistance, fall precautions, other (no strenous activity) Diet: low salt, advance as tolerated Follow up with: PRIMARY CARE, [Referring] - 3-5 Days Prescriptions: Amoxicillin/Potassium Clav [Augmentin 875-125 Tablet] 1 each PO BID #10 tablet
[2018-09-09] MEDS: TYLENOL PO PRN (17:26)
== END 2018-09-09 18:06 | disposition home health service (06) | DRG 871 ==
LOC: ED 17:55 → 3A 23:41 → CC1 09-05 14:48 → 3A 09-06 10:28
PROVIDERS: ADMIT Internal Medicine; ATTEND Internal Medicine
PROC: 4A033R1 Measurement of Arterial Saturation, Peripheral, Percutaneous Approach (ICD-10-PCS; principal; 2018-09-07)
DX: A41.9 Sepsis, unspecified organism (principal); N17.0 Acute kidney failure with tubular necrosis; R65.21 Severe sepsis with septic shock; I69.351 Hemiplegia and hemiparesis following cerebral infarction affecting right dominant side; K21.9 Gastro-esophageal reflux disease without esophagitis; M19.90 Unspecified osteoarthritis, unspecified site; F32.9 Major depressive disorder, single episode, unspecified; J44.9 Chronic obstructive pulmonary disease, unspecified; M32.9 Systemic lupus erythematosus, unspecified; M06.9 Rheumatoid arthritis, unspecified; K57.32 Diverticulitis of large intestine without perforation or abscess without bleeding; N30.01 Acute cystitis with hematuria; E86.0 Dehydration; M79.7 Fibromyalgia; R11.2 Nausea with vomiting, unspecified; I24.9 Acute ischemic heart disease, unspecified; Z82.49 Family history of ischemic heart disease and other diseases of the circulatory system
CPT/HCPCS: 36415; 36600; 71045; 74176; 80048; 80053; 80061; 81001; 82140; 82533; 82550; 82553; 82803; 83690; 84484; 85025; 86140; 87040; 96361; 96375; 99292; G0378; A6250; C9113; J0696; J1170; J1200; J1650; J2270; J2405; J2543; J3370; J7030